=== PATIENT | male | born 1995 | race Caucasian/White ===

== ENCOUNTER 2018-11-16 06:02 | Emergency (ER) | payer BC ==
[~2018-11-16] VITALS: Ht 180.3 cm; Wt 81.6 kg
[2018-11-16 06:02] VITALS: BP 118/48
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
[2018-11-16 06:17] VITALS: BP 118/48
--- NOTE | 2018-11-16 06:17 | NUR ---
Patient discharged with v/s stable. Written and verbal after care instructions given and explained. Patient verbalized understanding. Ambulatory WITH [facility] in custody. All questions addressed prior to discharge. Advised to follow up with PMD.
== END 2018-11-16 06:17 ==
LOC: MED 06:02
DX: Z04.1 Encounter for examination and observation following transport accident (principal); Z02.89 Encounter for other administrative examinations; V89.2XXA Person injured in unspecified motor-vehicle accident, traffic, initial encounter; Y93.89 Activity, other specified; Y92.89 Other specified places as the place of occurrence of the external cause; Y99.8 Other external cause status
CPT/HCPCS: 96372; 99283